=== PATIENT | male | born 1955 | race Caucasian/White ===

== ENCOUNTER 2021-04-20 00:06 | Emergency (ER) | payer OTHER, SELFPAY ==
[2021-04-20 00:11] VITALS: BP 129/84; PULSE 63; RESP 16; TEMP 36.5; O2SAT 96
--- NOTE | 2021-04-20 00:38 | W.ED.GENAD ---
Discharge Plan Disposition Patient Disposition: HOME Condition: Good Discharge Details Clinical Impression: Corneal abrasion, left [facility]: Gerald Herbert Home Meds and New Rx's Prescriptions: Continued pqgnzrjnl-wyhrsw-eweetowk-scop 16.2-0.1037 -0.0194 mg Capsule PO RF: 0 alprazolam 0.25 mg Tablet 0.25 RF: 0 ombzxdoejbrdfw-jsziwa-p-pram.1 2.5 %-1 % (4 gram)-1 % Kit,Cream And Towelette RF: 0 calcipotriene-betamethasone 0.005-0.064 % Cream TOPICAL RF: 0 propranolol 160 mg Capsule,Extended Release 24 Hr PO RF: 0 atorvastatin 20 mg Tablet RF: 0 aspirin 81 mg Tablet,Delayed Release (Dr/Ec) RF: 0 citalopram 20 mg Tablet 30 mg RF: 0 diltiazem HCl 120 mg Capsule,Ext.Rel 24h Degradable PO RF: 0 lisinopril 30 mg Tablet RF: 0 omeprazole 20 mg Capsule,Delayed Release(Dr/Ec) RF: 0 Discharge Instructions Instructions: Corneal Abrasion (ED) Additional Instructions: At this time you have a mild corneal abrasion in your left eye. Please apply the erythromycin ointment 2-3 times daily. Please continue to take your antihistamine drops, as well as your artificial tears. If you notice any worsening of your symptoms, or any new symptoms such as vomiting, diarrhea, fever, chills, shortness of breath, chest pain, numbness, weakness, or fainting , please return immediately to the emergency department for reevaluation. Please follow up with your primary care provider or the wood repatcher Dr. Irwin as soon as possible for reassessment and reevaluation. As always, it was a pleasure participating in your medical care today. Referrals: [facility] [Outside] Medical Decision Making 65-year-old male with past medical history of hypertension, high cholesterol, reflux, who presents today for evaluation of left eye pain. For the past 3 to 4 days the patient has had mild irritation in his left eye, he was seen by an wood repatcher who diagnosed him with allergic conjunctivitis. He was started on an antihistamine drop, as well as artificial tears, has been slowly improving however this morning about 30 minutes prior to arrival when he woke up out of sleep he noticed a notable irritating pain in his left eye feeling like it was helping stuck on it. He came into the ER for further assessment. He denies any vision changes. He is back to his contact lenses. He denies any pressure-like sensation in his eye. No dark curtain coming down over his vision. No other complaints. He denies any trauma to his eye, welding, or metal or wood working recently. He denies getting anything into his eye. Patient demonstrates a small area of uptake and corneal abrasion in the eye, no evidence of foreign body in the upper or lower lid or on the eye itself. Symptoms appear consistent with a mild corneal abrasion. In addition to that he does have some mild pedunculation of the eye consistent with allergic conjunctivitis. Will treat with erythromycin ointment, close follow-up with optometry. Discussed red flags which return. I have extensively reviewed the treatment plan and discharge instructions with the patient. I have addressed all patient concerns at this time. The patient was made aware of what symptoms to monitor for that would warrant a return to the emergency department. Discussed the plan with the patient, they demonstrate verbal understanding and agreement with our assessment and plan at this time. The documentation in this chart was dictated using [employer] dictation software. Please excuse any dictation errors. HPI General Date/Time Provider Initiated Documentation: 04/20/21 00:07. HPI Narrative: 65-year-old male with past medical history of hypertension, high cholesterol, reflux, who presents today for evaluation of left eye pain. For the past 3 to 4 days the patient has had mild irritation in his left eye, he was seen by an wood repatcher who diagnosed him with allergic conjunctivitis. He was started on an antihistamine drop, as well as artificial tears, has been slowly improving however this morning about 30 minutes prior to arrival when he woke up out of sleep he noticed a notable irritating pain in his left eye feeling like it was helping stuck on it. He came into the ER for further assessment. He denies any vision changes. He is back to his contact lenses. He denies any pressure-like sensation in his eye. No dark curtain coming down over his vision. No other complaints. He denies any trauma to his eye, welding, or metal or wood working recently. He denies getting anything into his eye. Related Data Home Medications Medication Instructions Recorded Confirmed alprazolam 0.25 04/20/21 aspirin 04/20/21 atorvastatin 04/20/21 calcipotriene-betamethasone applic TOPICAL 04/20/21 citalopram 30 mg 04/20/21 diltiazem HCl PO 04/20/21 wraopifgsvxxpf-resmcv-l-pram.1 ea 04/20/21 lisinopril 04/20/21 omeprazole 04/20/21 neiupedoc-orjtse-hapfqios-scop cap PO 04/20/21 propranolol PO 04/20/21 Allergies Allergy/AdvReac Type Severity Reaction Status Date / Time bupropion [From Wellbutrin] Allergy Unverified 04/20/21 00:18 carisoprodol [From Soma] Allergy Unverified 04/20/21 00:18 cefuroxime [From Ceftin] Allergy Unverified 04/20/21 00:18 doxycycline Allergy Unverified 04/20/21 00:18 fenoprofen [From Nalfon] Allergy Unverified 04/20/21 00:18 levofloxacin [From Levaquin] Allergy Unverified 04/20/21 00:18 sulfamethoxazole Allergy Unverified 04/20/21 00:18 [From Sulfamethoxazole-Trimethoprim] trimethoprim Allergy Unverified 04/20/21 00:18 [From Sulfamethoxazole-Trimethoprim] vilazodone [From Viibryd] Allergy Unverified 04/20/21 00:18 General Stated Complaint: EyeProblem DANA: 4 Review of Systems All systems reviewed & are unremarkable except as noted in HPI and below PFSH Social History Smoking/Tobacco Use Status: Never Smoking risk assessment performed?: Yes Alcohol Intake: current Alcohol Intake frequency: a few times a month Drug use: Never Substance use type: does not use Do you feel safe at home: Yes Do you feel safe in your relationship?: Yes Exam Narrative Exam Narrative: 1.Const: Well-nourished, Well-developed, appearing stated age 2.Eyes: PERRL, no conjunctival injection, and symmetrical lids. Left eye: EOMI, PERRL, Peripheral vision intact. No nystagmus. No clinical signs of septal/orbital cellulitis, no redness around the eye, no proptosis. No hyphema, no signs of trauma around the eye, no periorbital emphysema. No sluggishness of the pupil. No ophthalmoplegia. No afferent pupillary defect. Fluorescein exam is positive for corneal abrasion just below the pupil, no evidence of ulcer at this time. No evidence of foreign body in the eye., negative Maryanne sign. Eversion of the upper and lower lid shows no evidence of foreign body. 3.ENT: Atraumatic external nose and ears. Moist MM. Neck: Symmetric, trachea midline, No thyromegaly. 4.CVS: +S1/S2, No murmurs or gallops. Peripheral pulses 2+ and equal in all extremities. Brisk capillary refill in all extremities. 5.RESP: Unlabored respiratory effort. Clear to auscultation bilaterally. No wheezes rales or rhonchi 6.GI: Soft, Nontender/Nondistended, No hepatosplenomegaly. No guarding or rebound. 7.MSK: Normocephalic/Atraumatic, Extremities w/o deformity or ttp No cyanosis or clubbing, Normal movement of all extremities 8.Skin: Warm, Dry. No rashes or lesions. 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 Sensation grossly intact, no focal neurologic deficits. 10.Psych: (AAO) x3. Appropriate mood and affect Course Vital Signs Vital signs: Vital Signs Temperature 36.5 C 04/20/21 00:11 Pulse 63 04/20/21 00:11 Respiratory Rate 16 04/20/21 00:11 Blood Pressure 129/84 04/20/21 00:11 Pulse Oximetry 96 04/20/21 00:11 Temperature 36.5 C 04/20/21 00:11 Temperature Source Temporal Artery Scan 04/20/21 00:11 Pulse 63 04/20/21 00:11 Respiratory Rate 16 04/20/21 00:11 Respiratory Effort Non-Labored 04/20/21 00:24 Blood Pressure 129/84 04/20/21 00:11 Pulse Oximetry 96 04/20/21 00:11 Oxygen Delivery Method Room Air 04/20/21 00:11 Oxygen Flow Rate 0 04/20/21 00:11 Pain Level 2 04/20/21 00:11
[2021-04-20] MEDS: Erythromycin Ophth Oint 3.5 GM TUBE (00:39)
[2021-04-20] MEDS: Fluorescein STRIPS 100/BOX 1 MG (00:39)
[2021-04-20] MEDS: Tetracaine 0.5% 4 ML BTL (00:39)
== END 2021-04-20 00:45 | disposition home or self-care (01) ==
PROVIDERS: Emergency Provider Student in an Organized Health Care Education/Training Program
DX: S05.02XA Injury of conjunctiva and corneal abrasion without foreign body, left eye, initial encounter (principal); X58.XXXA Exposure to other specified factors, initial encounter
CPT/HCPCS: 99283